=== PATIENT | female | born 1970 | race African-American/Black ===

== ENCOUNTER 2024-05-20 06:01 | Day surgery (SDC) | payer MEDICARE, MEDICAID ==
[2024-05-20] MEDS ORDERED: Vancomycin 1 GM VIAL ONE (06:25)
[2024-05-20] MEDS ORDERED: Thrombin 5000 UNITS/5 ML VIAL ONE (06:25)
[2024-05-20] MEDS ORDERED: Bacitracin Zinc Ointment 30 gm TUBE ONE (06:25)
[2024-05-20] MEDS ORDERED: PROPOFOL 20 ML ONE (06:51)
[2024-05-20] MEDS ORDERED: fentaNYL PF 100 MCG/2 ML SYRINGE ONE (06:51)
[2024-05-20] MEDS ORDERED: Rocuronium Bromide 10 MG/ML (10ML VIAL) ONE (06:52)
[2024-05-20] MEDS ORDERED: Lidocaine 1% PF 5 ML VIAL ONE (06:52)
[2024-05-20] MEDS ORDERED: CEFAZOLIN 2 GM VIAL ONE (07:19)
[2024-05-20 07:29] LABS: Hematocrit 45.1 % (36.0-47.0); Hemoglobin 14.2 g/dL (12.0-16.0); Mean Corpuscular HGB CONC 31.5 g/dL (32.0-36.0); Mean Corpuscular Hemoglobin 28.4 pg (27.0-31.0); Mean Corpuscular Volume 90.2 fL (78.0-98.0); Mean Platelet Volume 10.4 fL (7.4-10.4); Platelet Count 155 10x3/uL (130-400); RBC Distribution Width 13.1 % (11.5-14.5)
[2024-05-20] MEDS ORDERED: Sterile Water 10 ML ONE (07:37)
[2024-05-20 07:44] LABS: Prothrombin Time 13.5 sec (12.0-14.7)
[2024-05-20 07:45] LABS: Anion Gap 17 mmol/L (10-20); BUN (Urea Nitrogen) 16 mg/dL (9.8-20.1); Calc. Creatinine Clearance 0 mL/min (70-130); Calcium 9.5 mg/dL (7.8-10.44); Carbon Dioxide 23 mmol/L (22-29); Chloride 105 mmol/L (98-107); Estimated GFR 81; Glucose 79 mg/dL (70-105); PTT 36.6 sec (22.9-36.1); Potassium 5.1 mmol/L (3.5-5.1); Sodium 140 mmol/L (136-145)
[2024-05-20] MEDS ORDERED: Dexamethasone 20 MG/5 ML VIAL ONE ×2 (07:58→10:09)
[2024-05-20] MEDS ORDERED: PHENYLEPHRINE-NS 100 MCG/ML 10 ML SYRINGE ONE (08:02)
[2024-05-20] MEDS ORDERED: Ondansetron PF 4 MG/2 ML Vial ONE ×2 (08:20→10:09)
[2024-05-20] MEDS ORDERED: SUGAMMADEX SODIUM 200 MG/2 ML VIAL ONE (08:25)
== END 2024-05-20 13:40 ==
LOC: SDC 06:01
PROVIDERS: ATTEND Surgery
PROC: 0NB00ZZ Excision of Skull, Open Approach (ICD-10-PCS; principal; 2024-05-20)
DX: T85.698A Other mechanical complication of other specified internal prosthetic devices, implants and grafts, initial encounter (principal); Z88.0 Allergy status to penicillin; Z88.2 Allergy status to sulfonamides; Z91.010 Allergy to peanuts; Z91.018 Allergy to other foods; Z79.2 Long term (current) use of antibiotics; Y83.1 Surgical operation with implant of artificial internal device as the cause of abnormal reaction of the patient, or of later complication, without mention of misadventure at the time of the procedure
CPT/HCPCS: 11042; 80048; 85027; 85610; 85730; 93005; J1100; J2405; J2704; J3370; 36415; 93010